=== PATIENT | male | born 1995 | race Caucasian/White ===

== ENCOUNTER 2022-09-28 13:07 | Emergency (ER) | payer BC, SELFPAY ==
[2022-09-28 13:27] VITALS: BP 141/86; PULSE 108; RESP 18; TEMP 37.4; O2SAT 100; BMI 25.1
[2022-09-28 13:34] LABS: UTC Influenza A Antigen Positive (Negative); UTC Influenza B Antigen Negative (Negative)
--- NOTE | 2022-09-28 13:46 | EXP.UTC ---
Discharge Plan Referrals Follow up/Referrals: Provider,Referral, MD [Primary Care Provider] - See instructions Activity Restrictions/Add. Instructions Additional Instructions/Restrictions: Too late to start Tamiflu. Most effective when started within 48 hours of symptoms onset Lots of rest Increase Fluids water, Gatorade, powerade, pedialyte,if /toddler/child Alternate Tylenol and / or ibuprofen as discussed for fever, aches, chills Follow up IMMEDIATELY with your family doctor for new or worsening Symptoms OR no noticeable improvement over the next 48-72 hours, 911 for difficulty or breathing You or your child area contagious until no fever, aches, chills for 24 hours with medication for symptoms Help Prevent the spread of influenza: ?Wash your hands often. Use soap and water. Wash your hands after you use the bathroom, change a child's diapers, or sneeze. Wash your hands before you prepare or eat food. Use gel hand cleanser that has 60% alcohol, when soap and water are not available. Do not touch your eyes, nose, or mouth unless you have washed your hands first. Cover your mouth when you sneeze or cough. Cough into a tissue or the bend of your arm. If you use a tissue, throw it away immediately and wash your hands. Clean shared items with a germ-killing tack cleaner. Clean table surfaces, doorknobs, and light switches. Do not share towels, silverware, and dishes with people who are sick. Wash bed sheets, towels, silverware, and dishes with soap and water. Wear a mask over your mouth and nose if you are sick. The face mask may help protect others from becoming infected with the flu. Wear the mask when in common areas of your home or if you seek care with a healthcare provider. Stay away from others if you are sick. Stay at home until 24 hours after your fever and symptoms are gone. Clinical Impressions Clinical Impression: Influenza Stand Alone Forms Stand Alone Forms: Work/School Release Instructions Patient Instructions: DI for Influenza -- Adult, Influenza Discharge ED Provider: Ashley Vilchis [facility] General Stated complaint: Fever, bodyaches, congestion, drainage Mode of Arrival: Family Vehicle Source of Information: Patient Limitations: No Limitations Time Seen by Provider: 09/28/22 13:47 Description of Symptoms (Recalled from Triage Doc. by RN): Pt c/o body aches, chills, dry cough, fever and runny nose that started 3 days ago. HEENT Symptoms (Recalled from RN notes): Yes Resp Symptoms (Recalled from RN notes): No Skin Symptoms (Recalled from RN notes): No MS Symptoms (Recalled from RN notes): No Functional Status (Recalled from RN notes): wnl History of Present Illness Provider Complaint: Patient states that for the last 3 days he has been having fever, chills, body aches, dry cough and runny nose States that he has been taking OTC meds but not helping much so today when he was still not feeling well he came in to get checked out Related Data Allergies Allergy/AdvReac Type Severity Reaction Status Date / Time Sulfa (Sulfonamide Allergy Verified 09/28/22 13:31 Antibiotics) Worker's Comp Is this a Worker's Comp case?: No [facility] Disclaimer: The information contained in this section may have been updated after the patient was seen, as this information can be updated by other users. Medical History (Updated 09/28/22 @ 13:50 by Ashley Vilchis APRN) No significant past medical history Social History Smoking Status: Never smoker alcohol intake: never current occupational status: employed Travel in the last 8 weeks: None ROS Obtained: Yes All systems reviewed & no additional complaints except as documented and Yes Systems reviewed as appropriate & no additional complaints except as documented Constitutional Constitutional: R
[2022-09-28 13:50] VITALS: BP 141/86; PULSE 108; RESP 21; TEMP 37.4; O2SAT 99
== END 2022-09-28 13:50 | disposition home or self-care (01) ==
PROVIDERS: Emergency Provider Nurse Practitioner
DX: J10.1 Influenza due to other identified influenza virus with other respiratory manifestations (principal)
CPT/HCPCS: 87804; 99212; G0463